=== PATIENT | female | born 1940 | race Caucasian/White ===

== ENCOUNTER 2024-06-12 07:19 | Observation (INO) ==
[~2024-06-12 07:19] MED LIST: Naloxone 0.4 mg VIAL 0.4 mg/ml 1 ml VIAL IV PRN; fentaNYL 100 mcg/2 ml 50 MCG/ML VIAL IV PRN
[2024-06-12] MEDS: Buffered Lidocaine 1% SYRIN 1 ml INTRADERM ONE (08:02)
[2024-06-12] MEDS ORDERED: ceFAZolin 2 GM PREMIX 2 GM/50 ML BAG ONE (08:13)
[2024-06-12] MEDS ORDERED: Chlorhexidine MOUTHWASH 0.12% 15 ML UDC ONE (08:13)
[2024-06-12 08:20] LABS: Rapid COVID-19 Molecular Undetected (Undetected)
[2024-06-12] MEDS: Lactated Ringers 1000 ml BAG 1,000 ML IV SCH ×2 (08:48→14:27)
[2024-06-12] MEDS ORDERED: ceFAZolin VIAL VIAL ONE (09:05)
[2024-06-12] MEDS ORDERED: Lidocaine 1% w EPI 1:100,000 MDV 20 ML VIAL ONE (09:05)
[2024-06-12] MEDS ORDERED: Thrombin 5,000 UNITS 1 APPLIC KIT - topical use - TOPICAL ONE (09:05)
[2024-06-12] MEDS ORDERED: Lidocaine 2% PF 5 ML VIAL ONE (09:13)
[2024-06-12] MEDS ORDERED: fentaNYL 100 mcg/2 ml 50 MCG/ML VIAL ONE (09:13)
[2024-06-12] MEDS ORDERED: Propofol 10 MG/ML 20 ML BTL ONE ×2 (09:13→11:02)
[2024-06-12] MEDS ORDERED: Rocuronium 50 mg VIAL 10 mg/ml 5 ml VIAL (50 mg) ONE (09:13)
[2024-06-12 09:52] LABS: Calcium 8.6 mg/dL (8.6-10.3); Magnesium 1.7 mg/dL (1.9-2.7)
[2024-06-12] MEDS ORDERED: Dexamethasone IV 4 MG/ML VIAL 1 ml VIAL ONE (11:02)
[2024-06-12] MEDS ORDERED: Acetaminophen IV 1 GM/100ML 1,000 MG/100 ML BAG IV ONE (11:13)
[2024-06-12] MEDS ORDERED: Ondansetron 4 mg VIAL 2 MG/ML 2 ml VIAL ONE (11:37)
[2024-06-12] MEDS ORDERED: Dextran 70/Hypromellose Tears Eye Drops 15 ml BTL (for Artificials Tears) BOTH EYES PRN (12:03)
[2024-06-12] MEDS ORDERED: Calcium Carb (TUMS) 500 mg CHEW TAB PO PRN (12:03)
[2024-06-12] MEDS ORDERED: Morphine 2 MG/ML SYRINGE IV PRN (12:03)
[2024-06-12] MEDS ORDERED: Phenol 1.4% Throat Spray BTL MT PRN (12:03)
[2024-06-12] MEDS ORDERED: Ondansetron 4 mg VIAL 2 MG/ML 2 ml VIAL IV PRN (12:03)
[2024-06-14 14:13] VITALS: BP 123/80
== END 2024-06-14 14:45 | disposition home or self-care (01) ==
LOC: SSU 07:19 → OR 07:19
PROVIDERS: ADMIT Neurological Surgery; ATTEND Neurological Surgery